=== PATIENT | female | born 1960 | race American Indian/Alaskan Native ===

== ENCOUNTER 2019-03-27 08:22 | Day surgery (SDC) | payer OTHER ==
[2019-03-27] VITALS (12 sets, daily range): BP systolic 98–129; BP diastolic 51–67; PULSE 49–79; TEMP 97.7
[~2019-03-27] VITALS: Ht 162.6 cm; Wt 104.3 kg
[2019-03-27] MEDS ORDERED: COREG 3.123.125 MG/T PO (09:02)
[2019-03-27] MEDS ORDERED: PLAQUENIL 200M200 MG PO (09:03)
[2019-03-27] MEDS ORDERED: ESTRACE 1MG1 MG/TAB PO (09:04)
[2019-03-27] MEDS ORDERED: ASPIRIN E.C. 8181 MG PO (09:04)
[2019-03-27] MEDS ORDERED: PROTONIX 40MG T40 MG PO (09:06)
[2019-03-27] MEDS ORDERED: ANTIVERT 25MG25 MG PO (09:07)
[2019-03-27] MEDS ORDERED: D3-5050000 IU PO (09:08)
[2019-03-27 09:26] LABS: HEMATOCRIT 43.1 % (37.0-47.0); HEMOGLOBIN 14.2 g/dl (12.5-16.0); MEAN CELL VOLUME 94 fl (80.0-100.0); MEAN CORPUSCULAR HEMOGLOBIN 31 pg (27.0-31.0); MEAN CORPUSCULAR HGB CONC 33 g/dl (33.0-37.0); PLATELET COUNT 279 K/mm3 (130-400); RED BLOOD COUNT 4.59 M/mm3 (4.10-5.30); REDCELL DISTRIBUTION WIDTH-CV 12.8 % (11.5-14.5)
[2019-03-27 09:36] LABS: CALCIUM 8.9 mg/dL (8.4-10.2); CREATININE, serum 0.74 (0.52-1.25); POTASSIUM 4.3 mmol/L (3.4-5.0)
[2019-03-27 09:53] LABS: INR 0.9 (0.8-3.0); PROTHROMBIN TIME 10.7 SECONDS (9.7-12.8)
[2019-03-27 09:55] LABS: PARTIAL THROMBOPLASTIN TIME 30.9 SECONDS (26.0-37.0)
--- NOTE | 2019-03-27 10:07 | NUR ---
Initial visit; Patient thanked [employer] for being present and offering comfort, encouragement and prayer prior to her surgical procedure.
--- NOTE | 2019-03-27 10:22 | NUR ---
SEE MERGE DOCUMENTATION FOR MEDICATION ADMINISTRATION TIMES AND INTRA/POST PROCEDURE SEDATION ASSESSMENTS. PLAN FOR RIGHT GROIN ACCESS.
[2019-03-27 11:21] LABS: ARTERIAL BLD GAS O2 SATURATION 96.3 % (92-100); ARTERIAL BLD GAS TCO2 CT 21.4; ARTERIAL BLOOD GAS BASE EXCESS -4.3 (-2-2); ARTERIAL BLOOD GAS HCO3 20.3 meq/L (22-26); ARTERIAL BLOOD GAS PCO2 35.8 mmHg (35-45); ARTERIAL BLOOD GAS PO2 83.8 mmHg (80-100); ARTERIAL BLOOD GAS pH 7.37 (7.35-7.45)
--- NOTE | 2019-03-27 11:30 | NUR ---
PT BACK FROM [facility], BS REPORT FROM OLGA LIDIA DUVAL. PT IS AWAKE AND ALERT, P,W,D, RESP REG AND UNLABORED. GROIN SITE LOOKS GOOD WITHOUT HEMATOMA, OR EVIDENCE OF BLEEDING, CMS INTACT DISTAL. HOB ELEVATED TO 10DEG. FAMILY AT BS.
--- NOTE | 2019-03-27 15:00 | NUR ---
Pt has been doing well during recovery, she has been able to void large amt urine using bedpan, has been able to eat and drink with no problem. groin site has remained soft without hematoma or evidence of bleeding, cms remains intact, pt reports feeling tired and has asked that lights be turned down and she put hob down to rest for last 30 minutes of her bedrest.
--- NOTE | 2019-03-27 17:00 | NUR ---
Pt escorted to exit via wheelchair with family at this time. Pt did well during recovery, at about [address] groin dressing was changed for her comfort and at that time small amt oozing noted from medial venous puncture site, clean dressing applied using sterile technique, and pressure was held for 5 minutes. no blood noted to come through gauze. pt then was able to get up, ambulate to bathroom, get dressed without problems. initially pt did have some pain at site, but this improved with moving about. groin site remained soft without hematoma, and second dressing appeared clean and dry after ambulation, dressing etc. dc instructions were reviewed in detail, regaring cath discharge, site care, activity restrictions, f/u... saline lock to lfa was sore and was dc'd, dressing was applied. Pt and family denied any questions at time of departure.
== END 2019-03-27 17:00 | disposition home or self-care (01) ==
LOC: COL.CAR 08:22
PROVIDERS: Internal Medicine Cardiovascular Disease; Nurse Practitioner
DX: I27.20 Pulmonary hypertension, unspecified (principal); I08.3 Combined rheumatic disorders of mitral, aortic and tricuspid valves; I82.409 Acute embolism and thrombosis of unspecified deep veins of unspecified lower extremity; G47.33 Obstructive sleep apnea (adult) (pediatric); M79.7 Fibromyalgia; K44.9 Diaphragmatic hernia without obstruction or gangrene; R42 Dizziness and giddiness; Z79.82 Long term (current) use of aspirin; Z82.49 Family history of ischemic heart disease and other diseases of the circulatory system
CPT/HCPCS: J1644; J2250; J3010

== ENCOUNTER → 2019-10-18 | Outpatient (CLI) | payer OTHER ==
[~2019-10-18] MED LIST: ANTIVERT 25MG25 MG PO; ASPIRIN E.C. 8181 MG PO; COREG 3.123.125 MG/T PO; D3-5050000 IU PO; ESTRACE 1MG1 MG/TAB PO; PLAQUENIL 200M200 MG PO; PROTONIX 40MG T40 MG PO
== END ==
LOC: COL.PUL 09:55
DX: R06.02 Shortness of breath (principal)
CPT/HCPCS: J7674

== ENCOUNTER → 2021-01-09 | Outpatient (CLI) | payer OTHER | LOC: COL.VAS 13:58 | DX: I51.7 Cardiomegaly (principal); I35.1 Nonrheumatic aortic (valve) insufficiency ==

== ENCOUNTER → 2021-06-24 | Outpatient (CLI) | payer OTHER | LOC: COL.VAS 11:45 | DX: R06.02 Shortness of breath (principal) ==